=== PATIENT | male | born 1990 | race Caucasian/White ===

== ENCOUNTER 2017-11-24 15:13 | Emergency (ER) | payer OTHER ==
[2017-11-24 15:22] VITALS: BP 131/84
--- NOTE | 2017-11-24 15:53 | ED Physician Documentation ---
PD HPI LOWER EXT INJURY - Stated complaint Stated Complaint: R ANKLE PX - Chief complaint Chief Complaint: Ext Problem - History obtained from History obtained from: Patient - History of Present Illness PD HPI LOW EXT INJURY LOCATION: Right, Ankle Type of injury: Fall Where injury occurred: Park Timing - onset: Yesterday Timing - duration: Days (1) Timing - details: Abrupt onset, Still present Improved by: Rest, Ice, Immobilization Worsened by: Moving, Palpating Associated symptoms: Swelling, Discolored Contributing factors: No: Anticoagulated Similar symptoms before: Diagnosis (ankle fracture and sprain) Recently seen: Not recently seen - Additional information Additional information: 26-year-old male playing football yesterday jumped up to get an interception when he came down his foot landed on another player's foot and twisted. He has a lot of swelling to both sides of the ankle and pain with ambulation. Review of Systems Constitutional: denies: Fever Respiratory: denies: Cough GI: denies: Vomiting Skin: denies: Rash Musculoskeletal: reports: Joint pain, Joint swelling, Pain with weight bearing. denies: Neck pain, Back pain PD PAST MEDICAL HISTORY - Past Medical History Past Medical History: No - Past Surgical History Past Surgical History: No - Present Medications Home Medications: Ambulatory Orders Medication Instructions Recorded Confirmed No Known Home Medications 11/24/17 11/24/17 - Allergies Allergies/Adverse Reactions: Allergies Allergy/AdvReac Type Severity Reaction Status Date / Time No Known Drug Allergies Allergy Verified 11/24/17 15:22 - Social History Does the pt smoke?: No Smoking Status: Never smoker Does the pt drink ETOH?: Yes Does the pt have substance abuse?: No - Immunizations Immunizations are current?: Yes PD ED PE NORMAL - Vitals Vital signs reviewed: Yes (hypertensive mild) - General General: Alert and oriented X 3, No acute distress, Well developed/nourished - HEENT HEENT: Atraumatic, PERRL, EOMI - Respiratory Respiratory: No respiratory distress - Derm Derm: Normal color, Warm and dry, No rash - Extremities Extremities: Other (There is swelling and ecchymosis to the medial and lateral malleolus and tenderness as well. There is no tenderness over the proximal fifth distal neurovascular components are intact. He is able to flex and extend the foot but with pain to the dorsal aspect of the ankle. 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, No motor deficit, No sensory deficit, Normal speech Eye Opening: Spontaneous Motor: Obeys Commands Verbal: Oriented GCS Score: 15 - Psych Psych: Normal mood, Normal affect Results - Vitals Vitals: Vital Signs - 24 hr 11/24/17 15:20 Temperature 36.6 C Heart Rate 83 Respiratory 18 Rate Blood Pressure 131/84 H O2 Saturation 98 Oxygen O2 Source Room air - Rads (name of study) right ankle Radiology: Prelim report reviewed (Impression: Normal ankle radiography.), EMP read indepedently, See rad report Procedures - Splint (location) right ankle Splint applied by: Tech Type of splint: Ankle airsplint Other: Patient tolerated well, No complications, Neurovascular intact, Good alignment PD MEDICAL DECISION MAKING - ED course Complexity details: reviewed results, re-evaluated patient, considered differential, d/w patient ED course: 26-year-old male with an ankle sprain with a lot of ecchymosis is placed into an ankle stirrup. - Sepsis Event Vital Signs: Vital Signs - 24 hr 11/24/17 15:20 Temperature 36.6 C Heart Rate 83 Respiratory 18 Rate Blood Pressure 131/84 H O2 Saturation 98 Oxygen O2 Source Room air Departure - Departure Disposition: 01 Home, Self Care Clinical Impression: Right ankle sprain Instructions: ED Sprain Ankle W X Ray Follow-Up: SUZY Cárdenas [Provider Group] Discharge Date/Time: 11/24/17 16:10
--- NOTE | 2017-11-24 16:12 | XRAY Report ---
Reason: pain, bruising, swelling after playing football Procedure Date: 11/24/2017 Accession Number: [id number] / [id number] Procedure: XR - Ankle 3 View RT CPT Code: FULL RESULT: EXAM: RIGHT ANKLE RADIOGRAPHY EXAM DATE: 11/24/2017 03:39 PM. CLINICAL HISTORY: Pain, bruising, swelling after playing football. COMPARISON: None. TECHNIQUE: 3 views. FINDINGS: Bones: Normal. No fractures or bone lesions. Joints: Normal. No effusion. No subluxations. The ankle mortise is normally aligned. Soft Tissues: Soft tissue swelling. IMPRESSION: Normal ankle radiography. [facility]
== END 2017-11-24 16:10 | disposition home or self-care (01) ==
LOC: ED 15:13
DX: S93.401A Sprain of unspecified ligament of right ankle, initial encounter (principal); X50.1XXA Overexertion from prolonged static or awkward postures, initial encounter; Y93.61 Activity, american tackle football; Y92.830 Public park as the place of occurrence of the external cause
CPT/HCPCS: 99282; 99283